=== PATIENT | male | born 1930 | race Caucasian/White ===

== ENCOUNTER 2017-09-12 11:11 | Emergency (ER) | payer MEDICARE ==
[~2017-09-12] VITALS: Ht 172.7 cm; Wt 75.8 kg
[~2017-09-12 11:11] MED LIST: ATOR40TA PO; Aspirin EC81 MG PO; CALCAVITD PO; CARI350 PO; CYCL10 PO; GLIM2 PO; HYDACE5 PO; METF500 PO; MULVITMIND PO; NAPR500 PO; OMEG1CAP30 PO; OMEP20ER PO; ONDA4ODT MM; OXYACE7.5T PO; POLY17UD PO; PRED5 PO; PSYL5.85P PO; Prilosec Otc20 MG PO; ROSU10TA PO; VALS80 PO; XARELTO20 MG PO
[2017-09-12] MEDS ORDERED: TAMS.4ER PO (11:20)
[2017-09-12] MEDS ORDERED: Desowen60 GM TP (11:21)
[2017-09-12] MEDS ORDERED: PROBIOTIC1 EAC1 PO (11:22)
[2017-09-12] MEDS ORDERED: Citrucel500 MG PO (11:22)
[2017-09-12] MEDS ORDERED: AMLO5 PO (11:23)
[2017-09-12] MEDS ORDERED: Metformin HCl1000 MG PO (11:25)
[2017-09-12] MEDS ORDERED: METCAR500 PO (11:51)
== END 2017-09-12 12:06 | disposition home or self-care (01) ==
LOC: ER 11:11
DX: M54.6 Pain in thoracic spine (principal); M54.2 Cervicalgia; I10 Essential (primary) hypertension; E11.9 Type 2 diabetes mellitus without complications; I25.2 Old myocardial infarction; Z86.73 Personal history of transient ischemic attack (TIA), and cerebral infarction without residual deficits; Z87.891 Personal history of nicotine dependence; Z79.82 Long term (current) use of aspirin; Z79.899 Other long term (current) drug therapy; Z79.84 Long term (current) use of oral hypoglycemic drugs
CPT/HCPCS: 93005; 93010; 99283

== ENCOUNTER → 2018-01-29 | Outpatient (CLI) | payer MEDICARE ==
[~2018-01-29] MED LIST changes: +AMLO5 PO; +Citrucel500 MG PO; +Desowen60 GM TP; +METCAR500 PO; +Metformin HCl1000 MG PO; +PROBIOTIC1 EAC1 PO; +TAMS.4ER PO
== END | disposition home or self-care (01) ==
LOC: PLD 07:47 → LAB SHORT 07:47
DX: L57.0 Actinic keratosis (principal)
CPT/HCPCS: 88305

== ENCOUNTER 2018-10-25 09:58 | Day surgery (SDC) | payer MEDICARE ==
[~2018-10-25] VITALS: Ht 172.7 cm; Wt 76.8 kg
[~2018-10-25 09:58] MED LIST changes: +FURO40 PO; +GLIM4 PO; +Glucophage1000 MG PO; +K-Dur20 MEQ PO; +Lo-Dose Aspirin81 MG PO; +Omeprazole20 M1 PO; +VALSARTAN-HCTZ1 EACH PO; +Vsl#3 Capsule1 EACH PO
--- NOTE | 2018-10-25 11:09 | NUR ---
10/25/18 1108 Dagmar [place] 1106- DR NEGRON PRESENTED TO THE KANDACE-OP AREA TO INJECT R WRIST WITH MARCAINE 0.5% WITH EPI 1:200,000 5CC AND LIDOCAINE 2% WITH EPI 1:100,000 5CC. PATIENT WAS GIVEN VERSED 1CC PRIOR TO INJECTION. PT TOLERATED PROCEDURE WELL. OXYGEN SATURATION REMAINED STABLE.
== END 2018-10-25 12:02 | disposition home or self-care (01) ==
LOC: ORSCSDS 09:58
PROVIDERS: Orthopaedic Surgery
PROC: 01N54ZZ Release Median Nerve, Percutaneous Endoscopic Approach (ICD-10-PCS; principal; 2018-10-25 11:30)
DX: G56.01 Carpal tunnel syndrome, right upper limb (principal); I10 Essential (primary) hypertension; E11.9 Type 2 diabetes mellitus without complications; I25.10 Atherosclerotic heart disease of native coronary artery without angina pectoris; Z86.73 Personal history of transient ischemic attack (TIA), and cerebral infarction without residual deficits; Z79.899 Other long term (current) drug therapy; Z79.82 Long term (current) use of aspirin
CPT/HCPCS: 82947; J0690; J2250; J3010; J7120

== ENCOUNTER 2019-01-05 09:43 | Observation (INO) | payer MEDICARE ==
[~2019-01-05] VITALS: Ht 172.7 cm; Wt 77.0 kg
[2019-01-05 10:08] LABS: BASOPHILS ABSOLUTE AUTO 0.02 K/mm3 (0.00-0.23); BASOPHILS PERCENT AUTO 0 % (0-2); EOSINOPHILS ABSOLUTE AUTO 0.12 K/mm3 (0.00-0.68); EOSINOPHILS PERCENT AUTO 1 % (0-6); Hematocrit 32.6 % (37.0-53.0); Hemoglobin 11.2 g/dL (13.5-17.5); IMMATURE GRAN ABSOLUTE AUTO 0.02 K/mm3 (0.00-0.10); IMMATURE GRAN PERCENT AUTO 0 % (0-1); LYMPHOCYTES ABSOLUTE AUTO 0.62 K/mm3 (0.84-5.20); LYMPHOCYTES PERCENT AUTO 7 % (21-46); MONOCYTES ABSOLUTE AUTO 0.16 K/mm3 (0.16-1.47); MONOCYTES PERCENT AUTO 2 % (4-13); Mean Corpuscular HGB 30.4 pg (26.0-34.0); Mean Corpuscular HGB Conc 34.4 g/dL (31.5-36.5); Mean Corpuscular Volume 88 fL (80-100); Mean Platelet Volume 12.2 fL (9.1-12.4); NEUTROPHILS ABSOLUTE AUTO 8.21 K/mm3 (1.96-9.15); NEUTROPHILS PERCENT AUTO 90 % (41-73); Platelet Count 109 K/mm3 (150-400); RDW Standard Deviation 38.9 fL (35.1-46.3); Red Blood Cell Count 3.69 M/mm3 (4.30-5.90); White Blood Cell Count 9.15 K/mm3 (4.00-11.30)
[2019-01-05 10:22] LABS: Alanine Aminotransfer (ALT/SGP 49 U/L (12-78); Albumin, Blood 3.7 g/dL (3.4-5.0); Albumin/Globulin Ratio 1.2 (0.8-1.8); Alk Phos 100 U/L (50-136); Anion Gap 8 mmol/L (6-16); Aspartate Aminotrans (AST/SGOT 43 U/L (12-37); Bilirubin, Total 1.5 mg/dL (0.1-1.0); Blood Urea Nitrogen 33 mg/dL (8-24); Bun/Creatinine Ratio 28.7 (12.0-20.0); CO2, Blood 26 mmol/L (21-32); Calcium, Blood 8.5 mg/dL (8.5-10.1); Chloride, Blood 103 mmol/L (98-108); Creatinine, Blood 1.15 mg/dL (0.60-1.20); Globulin, Blood 3.2 g/dL (2.2-4.0); Glomerular Filtration Rate >60 (60-); Glucose, Blood 242 mg/dL (70-99); Potassium, Blood 4.8 mmol/L (3.5-5.5); Sodium, Blood 137 mmol/L (136-145); Total Protein, Blood 6.9 g/dL (6.4-8.2); Troponin I <0.015 ng/mL (0.000-0.040)
[2019-01-05] MEDS ORDERED: FINA5 PO (12:15)
[2019-01-05] MEDS ORDERED: TRAM50 PO (12:16)
[2019-01-05] MEDS ORDERED: LEVSOD25 PO (12:17)
--- NOTE | 2019-01-05 13:27 | NUR ---
PT ARRIVED FROM ED AND WAS ASSISTED TO THE TOILET WITH STAND BY ASSIST AND THEN TO BED. PT AMBULATES WELL WITH LITTLE TO NO ASSIST. PT WAS ORIENTEDD TO ROOM AND NURSING STAFF AND VERBALIZES AN UNDERSTANDING OF THE USE OF THE CALL LIGHT. PT IS RESTING IN BED.
--- NOTE | 2019-01-05 16:41 | NUR ---
SHIFT SUMMARY: SINCE ADMISSION FROM ER PT HAS REMAINED A/O X 4 AT BASELINE AND IS RESTING CONFORTABLY IN BED. PT STATES THAT THE LEFT SIDE HAS A "NAGGING" PAIN BUT HE IS CONFORTABLE IN BED. TELE WAS ORDERED AND HAS BEEN AT SINUS RHYTHM PER HEAVY MOBILE EQUIPMENT REPAIRER. PT HAS NO OTHER COMPLAINTS AND IS PLEASANT AND COOPERATIVE WITH HIS CARE.
--- NOTE | 2019-01-06 06:02 | NUR ---
SHIFT SUMMARY PT HAS SLEPT WELL DURING THE NIGHT, OFFERS NO C/O'S. B/P THIS AM LOW 70'S/40'S. HOSPITALIST NOTIFIED, ORDERS RECEIVED TO HOLD B/P MEDS THIS AM. B/P RECHECKED AND IS 90'S/40'S. PT ASYMPTOMATIC WITH B/P STATES HE FEELS FINE. WILL CONTINUE TO MONITOR.
--- NOTE | 2019-01-06 18:04 | NUR ---
SHIFT SUMMARY: PT IS A/O X 4 THIS SHIFT WITH NO C/O PAIN. HE WAS TAKEN FOR A STRESS TEST THIS MORNING AND THE SECOND PART WILL BE COMPLETED TOMORROW. CBGS HAVE BEEN HIGHER THAN YESTERDAY AND COVERED WITH SLIDING SCALE ORDERED. PT HAD FAMILY VISIT THIS MORNING. PT NAPPED AND READ MOST OF THE DAY AND IS VERY PLEASANT AND ABLE TO MAKE HIS NEEDS KNOWN.
--- NOTE | 2019-01-07 06:00 | NUR ---
Shift summary. Pt slept most of shift with no c/o discomfort. No request for pain meds. Pt npo p mn for second half of stress test in am. Pt on telemetry sinus rhythm 64 per [employer] teles[employer] professional.
--- NOTE | 2019-01-07 16:41 | NUR ---
SHIFT SUMMARY: PT CONTINUES TO BE A/O X 4 WITH NO C/O PAIN. PT WAS NPO FOR BREAKFAST WHILE AWAITING STRESS TEST AND WAS ASSISTED UP TO THE SHOWER THIS MORNING. SECOND PART OF STRESS TEST WAS COMPLETED THIS AFTERNOON AND THE RESULTS ARE PENDING. PT IS PLEASANT AND COOPERATIVE WITH ALL CARE.
--- NOTE | 2019-01-08 05:58 | NUR ---
SHIFT SUMMARY PT A/O INDEPENDENT IN ROOM. NO C/O PAIN. HE SAYS HE REALLY WANTS TO BE D/C'D TODAY. HE WAS ABLE TO SLEEP T/O NIGHT. CALL LIGHT IN REACH.
[2019-01-08] MEDS ORDERED: GLIM2 PO (09:34)
--- NOTE | 2019-01-08 09:57 | NUR ---
PT DCD HOME WITH AND DAUGHTER. ALL MEDS AND F/U APPTS REVIEWED WITH PT WHO VERBALIZES AN UNDERSTANDING. IV REMOVED WITH NO ISSUE. ALL BELONGINGS SENT WITH PT. PT PLEASANT AND THANKFUL FOR HIS STAY AT [facility].
== END 2019-01-08 09:49 | disposition home or self-care (01) ==
LOC: ER 09:43 → MEDS 09:44 → ENPENDDIS 01-08 09:00 → MEDS 01-08 09:49
PROVIDERS: Emergency Medicine; ADMIT Internal Medicine
DX: R07.9 Chest pain, unspecified (principal); I25.10 Atherosclerotic heart disease of native coronary artery without angina pectoris; E11.51 Type 2 diabetes mellitus with diabetic peripheral angiopathy without gangrene; I73.9 Peripheral vascular disease, unspecified; I10 Essential (primary) hypertension; K21.9 Gastro-esophageal reflux disease without esophagitis; Z86.73 Personal history of transient ischemic attack (TIA), and cerebral infarction without residual deficits; Z95.1 Presence of aortocoronary bypass graft; Z88.8 Allergy status to other drugs, medicaments and biological substances; Z79.01 Long term (current) use of anticoagulants; Z79.82 Long term (current) use of aspirin; Z79.84 Long term (current) use of oral hypoglycemic drugs; Z79.899 Other long term (current) drug therapy
CPT/HCPCS: 36415; 71046; 78452; 80053; 82947; 84484; 85025; 93005; 93010; 93017; 99285-25; A9500; G0378; J0706; J2785

== ENCOUNTER 2019-06-12 09:44 | Day surgery (SDC) | payer MEDICARE ==
[~2019-06-12] VITALS: Ht 172.7 cm; Wt 77.8 kg
[~2019-06-12 09:44] MED LIST changes: +FINA5 PO; +LEVSOD25 PO; +TRAM50 PO
--- NOTE | 2019-06-12 10:45 | NUR ---
06/12/19 Grace Can CALL LIGHT WITHIN REACH.
== END 2019-06-12 11:35 | disposition home or self-care (01) ==
LOC: ORSCSDS 09:44
DX: M18.12 Unilateral primary osteoarthritis of first carpometacarpal joint, left hand (principal); Z53.9 Procedure and treatment not carried out, unspecified reason
CPT/HCPCS: 82947; J0690; J7120

== ENCOUNTER 2019-06-26 08:03 | Day surgery (SDC) | payer MEDICARE ==
[~2019-06-26] VITALS: Ht 172.7 cm; Wt 78.0 kg
--- NOTE | 2019-06-26 08:51 | NUR ---
06/26/19 0851 Grace Umaña CALL LIGHT WITHIN REACH.
== END 2019-06-26 12:27 | disposition home or self-care (01) ==
LOC: ORSCSDS 08:03
DX: M18.12 Unilateral primary osteoarthritis of first carpometacarpal joint, left hand (principal); I10 Essential (primary) hypertension; I25.10 Atherosclerotic heart disease of native coronary artery without angina pectoris; Z87.891 Personal history of nicotine dependence; E11.9 Type 2 diabetes mellitus without complications; E03.9 Hypothyroidism, unspecified; E78.00 Pure hypercholesterolemia, unspecified; Z79.01 Long term (current) use of anticoagulants; Z79.84 Long term (current) use of oral hypoglycemic drugs; Z79.82 Long term (current) use of aspirin; Z79.899 Other long term (current) drug therapy
CPT/HCPCS: 82947; C1713; J0171; J0690; J1100; J1885; J2250; J2405; J2704; J3010; J7120

== ENCOUNTER 2020-04-14 08:21 | Inpatient (IN) | payer MEDICARE ==
[~2020-04-14] VITALS: Ht 172.7 cm; Wt 74.8 kg
[~2020-04-14 08:21] MED LIST changes: -FINA5 PO; -FURO40 PO; -Glucophage1000 MG PO; -K-Dur20 MEQ PO; -LEVSOD25 PO; -Omeprazole20 M1 PO; -VALSARTAN-HCTZ1 EACH PO; -Vsl#3 Capsule1 EACH PO
[2020-04-14 09:07] LABS: BASOPHILS ABSOLUTE AUTO 0.02 K/mm3 (0.00-0.23); BASOPHILS PERCENT AUTO 0 % (0-2); EOSINOPHILS ABSOLUTE AUTO 0.17 K/mm3 (0.00-0.68); EOSINOPHILS PERCENT AUTO 4 % (0-6); Hematocrit 32.2 % (37.0-53.0); Hemoglobin 10.9 g/dL (13.5-17.5); IMMATURE GRAN ABSOLUTE AUTO 0.01 K/mm3 (0.00-0.10); IMMATURE GRAN PERCENT AUTO 0 % (0-1); LYMPHOCYTES ABSOLUTE AUTO 1.45 K/mm3 (0.84-5.20); LYMPHOCYTES PERCENT AUTO 32 % (21-46); MONOCYTES ABSOLUTE AUTO 0.42 K/mm3 (0.16-1.47); MONOCYTES PERCENT AUTO 9 % (4-13); Mean Corpuscular HGB 29.6 pg (26.0-34.0); Mean Corpuscular HGB Conc 33.9 g/dL (31.5-36.5); Mean Corpuscular Volume 88 fL (80-100); Mean Platelet Volume 12.2 fL (9.1-12.4); NEUTROPHILS ABSOLUTE AUTO 2.45 K/mm3 (1.96-9.15); NEUTROPHILS PERCENT AUTO 54 % (41-73); Platelet Count 90 K/mm3 (150-400); RDW Coefficient Variation 11.9 % (11.7-14.2); RDW Standard Deviation 38.1 fL (35.1-46.3); Red Blood Cell Count 3.68 M/mm3 (4.30-5.90); White Blood Cell Count 4.52 K/mm3 (4.00-11.30)
[2020-04-14 09:19] LABS: International Normalized Ratio 1.38; Prothrombin Time Results 14.5 Sec (9.7-11.5)
[2020-04-14 09:31] LABS: Alanine Aminotransfer (ALT/SGP 39 U/L (12-78); Albumin, Blood 3.8 g/dL (3.4-5.0); Albumin/Globulin Ratio 1.2 (0.8-1.8); Alk Phos 101 U/L (50-136); Anion Gap 3 mmol/L (6-16); Aspartate Aminotrans (AST/SGOT 28 U/L (12-37); Bilirubin, Total 1.3 mg/dL (0.1-1.0); Blood Urea Nitrogen 24 mg/dL (8-24); Bun/Creatinine Ratio 21.1 (12.0-20.0); CO2, Blood 28 mmol/L (21-32); Calcium, Blood 8.9 mg/dL (8.5-10.1); Chloride, Blood 107 mmol/L (98-108); Creatinine, Blood 1.14 mg/dL (0.60-1.20); Globulin, Blood 3.1 g/dL (2.2-4.0); Glomerular Filtration Rate >60 (60-); Glucose, Blood 77 mg/dL (70-99); Potassium, Blood 4.6 mmol/L (3.5-5.5); Sodium, Blood 138 mmol/L (136-145); Total Protein, Blood 6.9 g/dL (6.4-8.2)
[2020-04-14] MEDS ORDERED: ATOR40TA PO (12:23)
[2020-04-14] MEDS ORDERED: Omeprazole20 M1 PO (12:23)
[2020-04-14] MEDS ORDERED: VALSARTAN-HCTZ1 EAC9 PO (12:24)
[2020-04-14] MEDS ORDERED: XARELTO20 MG PO (12:24)
[2020-04-14] MEDS ORDERED: METF500 PO (12:24)
[2020-04-14] MEDS ORDERED: AMLO5 PO (12:25)
[2020-04-14] MEDS ORDERED: FURO40 PO (12:25)
[2020-04-14] MEDS ORDERED: FINA5 PO (12:26)
[2020-04-14] MEDS ORDERED: K-Dur20 MEQ PO (12:26)
[2020-04-14] MEDS ORDERED: GLIM2 PO (12:27)
[2020-04-14] MEDS ORDERED: EUTHYROX50 MCG PO (12:27)
[2020-04-14] MEDS ORDERED: METHYLCELLULOSE PO (12:55)
[2020-04-14] MEDS ORDERED: Acidophilus1 EAC1 PO (12:56)
[2020-04-14] MEDS ORDERED: CYAN500 PO (12:57)
--- NOTE | 2020-04-14 18:56 | NUR ---
PT RESTING IN BED WITH FAMILY AT BEDSIDE. pT HAS LEFT SIDED WEAKNESS AND IS A 1 ASSIST. PT MED COMPLIANT, ALERT AHND ORIENTED X4 AND COOPERATIVE. MPT TOLERATED DINNER AND PO MEDS WITHOUT ISSUE. NEURO CHECKS TO CONT. Q4H. STAFF WILL CONT. TO MONITOR.
[2020-04-15 05:26] LABS: BASOPHILS ABSOLUTE AUTO 0.04 K/mm3 (0.00-0.23); BASOPHILS PERCENT AUTO 1 % (0-2); EOSINOPHILS ABSOLUTE AUTO 0.13 K/mm3 (0.00-0.68); EOSINOPHILS PERCENT AUTO 2 % (0-6); Hematocrit 32.3 % (37.0-53.0); IMMATURE GRAN PERCENT AUTO 0 % (0-1); LYMPHOCYTES ABSOLUTE AUTO 1.65 K/mm3 (0.84-5.20); LYMPHOCYTES PERCENT AUTO 27 % (21-46); MONOCYTES ABSOLUTE AUTO 0.58 K/mm3 (0.16-1.47); MONOCYTES PERCENT AUTO 9 % (4-13); Mean Corpuscular HGB 29.8 pg (26.0-34.0); Mean Corpuscular HGB Conc 34.1 g/dL (31.5-36.5); Mean Corpuscular Volume 88 fL (80-100); Mean Platelet Volume 11.9 fL (9.1-12.4); NEUTROPHILS ABSOLUTE AUTO 3.78 K/mm3 (1.96-9.15); NEUTROPHILS PERCENT AUTO 61 % (41-73); Platelet Count 108 K/mm3 (150-400); RDW Coefficient Variation 11.9 % (11.7-14.2); RDW Standard Deviation 38.4 fL (35.1-46.3); Red Blood Cell Count 3.69 M/mm3 (4.30-5.90); White Blood Cell Count 6.18 K/mm3 (4.00-11.30)
--- NOTE | 2020-04-15 05:49 | NUR ---
SHIFT SUMMARY AOX4. VSS. TELE NSR @64. DENIES PAIN, N/V, DYSPNEA. HAS MILD L FACIAL DROOP & REPORTED A "LITTLE NUMBNESS ON L SIDE FACE". L HAND BEN DAY ARTIST ARE WEAKER THEN R HAND, PT STATES HE FEELS L ARM IS STILL "DROOPY & HEAVY". BLE HAVE EQUAL STRENGTH c PEDAL PUSHES/PULLS. LEANS TO L SIDE c AMBULATION. CALL LIGHT IN REACH & ABLE TO MAKE NEEDS KNOWN.
[2020-04-15 05:57] LABS: Alanine Aminotransfer (ALT/SGP 38 U/L (12-78); Albumin, Blood 3.5 g/dL (3.4-5.0); Albumin/Globulin Ratio 1.1 (0.8-1.8); Alk Phos 108 U/L (50-136); Anion Gap 4 mmol/L (6-16); Aspartate Aminotrans (AST/SGOT 35 U/L (12-37); Bilirubin, Total 1.9 mg/dL (0.1-1.0); Blood Urea Nitrogen 22 mg/dL (8-24); Bun/Creatinine Ratio 18.6 (12.0-20.0); CO2, Blood 27 mmol/L (21-32); Calcium, Blood 9.2 mg/dL (8.5-10.1); Chloride, Blood 107 mmol/L (98-108); Creatinine, Blood 1.18 mg/dL (0.60-1.20); Globulin, Blood 3.3 g/dL (2.2-4.0); Glomerular Filtration Rate >60 (60-); Glucose, Blood 101 mg/dL (70-99); Potassium, Blood 4.6 mmol/L (3.5-5.5); Sodium, Blood 138 mmol/L (136-145); Total Protein, Blood 6.8 g/dL (6.4-8.2)
--- NOTE | 2020-04-15 17:03 | NUR ---
SHIFT SUMMARY: NO ACUTE EVENTS TODAY. NO EVENTS ON TELEMETRY. WORKED WITH PHYSICAL THERAPY, OT, AND ST. HAD CARDIAC ECHO THIS EVENING. NO CHANGES IN NEURO ASSESSMENT. GETTING UP TO BR WITH FWW AND SBA, GAIT HAS IMPROVED A BIT. DENIED PAIN. THERAPIES RECOMMENDING SNF FOR REHAB.
--- NOTE | 2020-04-15 17:44 | NUR ---
Echocardiogram using 9.0ml of agitated saline contrast performed.
--- NOTE | 2020-04-16 04:54 | NUR ---
SHIFT SUMMARY: VSS. SBP 160 AT HS, DOWN TO 128 THIS AM. PT AAOX3. ABLE TO COMMUNICATE NEEDS. DENIES PAIN. PERRL. L PILLOWCASE FOLDER WEAKER THAN R, L PUSH/PULL VERY SLIGHTLY WEAKER THAN R. SLIGHT FACIAL DROOP. PT STATES THAT HE FEELS HE IS GETTING STRONGER ON THE L SIDE. DENIES N/T. AMB IN ROOM W/ FWW AND SBA. NO ACUTE CHANGES TONIGHT. WILL CONT TO MONITOR.
--- NOTE | 2020-04-16 19:34 | NUR ---
SHIFT SUMMARY- PT IS A/O, PLESANT AND COOPERATIVE. HE IS EATING AND DRINKING WELL. HE WORKED WITH PT AND TOLERATED WELL. HE HAS SOME LEFT SIDED WEAKNESS. CALL LIGHT WITHIN REACH
--- NOTE | 2020-04-17 05:10 | NUR ---
SHIFT SUMMARY: VSS. AFEB. AAOX3. CONT W/ L CORN POPPER WEAKNESS AND SLIGHT TILT TO THE LEFT WHEN AMBULATING USING WALKER AND 1 ASSIST. SMILE APPEARS EQUAL BUT L SIDE OF PT MOUTH DROOPS WHILE PT IS SPEAKING. PT STATES THAT HE NOTICES HIS SPEECH BECOMES MORE SLURRED AFTER TALKING FOR LONGER PERIODS OF TIME. HE ALSO STATES THAT HE NOTICES HE IS DROOLING OCCASIONALLY FROM THE LEFT SIDE OF HIS MOUTH. NO COUGHING W/ORAL INTAKE. SLEEPING WELL TONIGHT. DENIES PAIN. PLEASANT AND COMMUNICATES NEEDS W/OUT DIFFICULTY.
--- NOTE | 2020-04-17 06:37 | NUR ---
RECEIVED CALL FROM TELE DRESS CAP MAKER STATING PT HAD 6 BEAT RUN OF V-TACH. REMAINED ASLEEP DURING.
--- NOTE | 2020-04-17 17:45 | NUR ---
OK TO LEAVE TELE ON WITH NO IV PER DR. PAIGE
--- NOTE | 2020-04-17 18:15 | NUR ---
SHIFT SUMMARY- PT IS A/O, PLESANT AND COOPERATIVE. HE IS EATING AND DRINKING WELL. HE TOOK A SHOWER THIS MORNING. HE IS STILL SHOWING LEFT SIDED WEAKNESS. HIS IV HAD TO BE REMOVED AFTER HIS SHOWER DUE TO BLOOD LEAKING AROUND IT. A NEW IV WAS ATTEMPTED AND UNSUCCESSFUL. DISCUSSED THIS WITH DR. PAIGE. OK TO LEAVE IT OUT. HE WAS UP TO THE CHAIR FOR SEVERAL HOURS THIS AFTERNOON.
--- NOTE | 2020-04-17 19:20 | NUR ---
ASSUMED CARE RECEIVED REPORT FROM CLAUDIA LARES. ASSUMED CARE OF PT. PT APPEARS COMFORTABLE, RESPS E/U, NO S/S ACUTE DISTRESS NOTED. PT DENIES NEEDS AT THIS TIME. CALL LIGHT AND POSSESSIONS IN REACH, SABAS.
--- NOTE | 2020-04-18 04:28 | NUR ---
SHIFT SUMMARY PT ASLEEP, NO S/S ACUTE DISTRESS NOTED. WAS MONITORED EVERY 1-2 HOURS WITH NEEDS MET. VS REVIEWED, WNL. PT ABLE TO STAND WITH 1 ASSIST WITH FWW AND GAIT BELT TO VOID IN URINAL, TOLERATED WELL. LT SIDE WEAKNESS REMAINS PRESENT. NO ATTEMPTS TO EXIT BED, PT CALLS APPROPRIATELY TO MAKE NEEDS KNOWN. PT DENIES NEEDS AT THIS TIME. CALL LIGHT, POSSESSIONS IN REACH, BED IN LOW POSITION. WCTM, REPORT TO ONCOMING RN.
[2020-04-18 05:16] LABS: BASOPHILS ABSOLUTE AUTO 0.03 K/mm3 (0.00-0.23); BASOPHILS PERCENT AUTO 1 % (0-2); EOSINOPHILS ABSOLUTE AUTO 0.18 K/mm3 (0.00-0.68); EOSINOPHILS PERCENT AUTO 3 % (0-6); Hematocrit 30.8 % (37.0-53.0); Hemoglobin 10.8 g/dL (13.5-17.5); IMMATURE GRAN ABSOLUTE AUTO 0.01 K/mm3 (0.00-0.10); IMMATURE GRAN PERCENT AUTO 0 % (0-1); LYMPHOCYTES ABSOLUTE AUTO 1.69 K/mm3 (0.84-5.20); LYMPHOCYTES PERCENT AUTO 30 % (21-46); MONOCYTES ABSOLUTE AUTO 0.53 K/mm3 (0.16-1.47); MONOCYTES PERCENT AUTO 10 % (4-13); Mean Corpuscular HGB 30.6 pg (26.0-34.0); Mean Corpuscular HGB Conc 35.1 g/dL (31.5-36.5); Mean Corpuscular Volume 87 fL (80-100); Mean Platelet Volume 11.8 fL (9.1-12.4); NEUTROPHILS ABSOLUTE AUTO 3.12 K/mm3 (1.96-9.15); NEUTROPHILS PERCENT AUTO 56 % (41-73); Platelet Count 105 K/mm3 (150-400); RDW Coefficient Variation 11.8 % (11.7-14.2); RDW Standard Deviation 37.6 fL (35.1-46.3); Red Blood Cell Count 3.53 M/mm3 (4.30-5.90); White Blood Cell Count 5.56 K/mm3 (4.00-11.30)
[2020-04-18 05:41] LABS: Bun/Creatinine Ratio 25.4 (12.0-20.0); Calcium, Blood 8.8 mg/dL (8.5-10.1); Creatinine, Blood 1.38 mg/dL (0.60-1.20); Potassium, Blood 4.5 mmol/L (3.5-5.5)
--- NOTE | 2020-04-18 18:06 | NUR ---
SHIFT SUMMARY PATIENT IS PLEASANT, ALERT AND ORIENTED. CALLS APPROPRIATELY. REPORTS THAT HE IS READY TO GO TO REHAB SO THAT HE CAN GET STRONGER BEFORE HE GOES HOME. HE STATES THAT HE IS DOING WELL AND DENIES ANY PAIN, SHORTNESS OF BREATH OR CHEST PAIN. HE WORKED WITH PHYSICAL THERAPY TODAY AND WALKED IN THE HALLWAYS. HE KNOWS THAT HE IS HERE UNTIL MONDAY DUE TO "NO ADMINISTRATION AT THE FACILITY UNTIL MONDAY". HE HAS NO CONCERNS ABOUT HIS DIET AT THIS TIME AND STATES HE UNDERSTANDS THE CONCERN AND WOULD LIKE TO CONTINUE TO BE EVALUATED NEEDED.
--- NOTE | 2020-04-18 19:00 | NUR ---
ASSUMED CARE RECEIVED REPORT FROM CLAUDIA REIS. ASSUMED CARE OF PT. PT A&O, PLEASANT, CALLS APPROPRIATELY FOR NEEDS. NO S/S ACUTE DISTRESS NOTED. DENIES NEEDS AT THIS TIME. CALL LIGHT, POSSESSIONS IN REACH, BED IN LOW POSITION WCTM.
--- NOTE | 2020-04-18 22:00 | NUR ---
REPORT GIVEN TO CLAUDIA ROSS. PT TRANSFERRED TO RM 335. ALL BELONGINGS AND MEDICATIONS SENT WITH PT.
--- NOTE | 2020-04-19 05:56 | NUR ---
WELDING MACHINE SETTER SUMMARY PT TRANSFERRED FROM ROOM 351 TO 335. RECEIVED REPORT FROM CLAUDIA OLMEDO. PT A&OX4, ABLE TO MAKE NEEDS KNOWN, PLEASANT AND COOPERATIVE TO CARE. DENIES CP, RESP EVEN AND UNLABORED IN ROOM AIR. DENIES N&V. PT CALM AND RESTED IN BED T/O SHIFT. PT CALLS APPROPRIATELY FOR ASSISTANCE. 1P SBA W/ FWW TO BATHROOM. BED AT LOWEST POSITION, CALL LIGHT WITHIN REACH. WILL CONT TO MONITOR PT FOR ANY CHANGES.
[2020-04-19 11:48] LABS: Anion Gap 5 mmol/L (6-16); Blood Urea Nitrogen 31 mg/dL (8-24); Bun/Creatinine Ratio 25.8 (12.0-20.0); CO2, Blood 28 mmol/L (21-32); Chloride, Blood 103 mmol/L (98-108); Glomerular Filtration Rate >60 (60-); Glucose, Blood 194 mg/dL (70-99); Potassium, Blood 4.5 mmol/L (3.5-5.5); Sodium, Blood 136 mmol/L (136-145)
--- NOTE | 2020-04-19 17:56 | NUR ---
PT AOX4 AND COOPERATIVE OF CARE. PT DENIED ANY PAIN AND CALLS APPROPRIATELY. PT IS A ONE PERSON WITH WALKER. PT AMBULATING WELL AT THIS TIME. WILL CONTINUE HANNAH MONITOR.
--- NOTE | 2020-04-20 04:07 | NUR ---
ESCAPEMENT MAKER SUMMARY A/OX3, APPEARED TO SLEEP T/O SHIFT. 1 ASSIST WITH FWW TO BATHROOM D/T SOME L. SIDED WEAKNESS. DENIES PAIN OR SOB. NO ACUTE CHANGES AT THIS TIME. BED IN LOWEST POSITION WITH CALL LIGHT IN REACH. WILL CONTINUE TO MONITOR AND REPORT TO ONCOMING RN.
[2020-04-20] MEDS ORDERED: CLOP75 PO (14:17)
[2020-04-20] MEDS ORDERED: XARELTO20 MG PO (14:17)
[2020-04-20] MEDS ORDERED: ACET325 PO (14:17)
--- NOTE | 2020-04-20 15:24 | NUR ---
PT DISCHARGED AT 1440 AOX4 AND COOPERATIVE OF CARE. PT AMBULATING WELL A STANDBY ASSIST. CALLED APPROPRIATELY AND WAS CONTINENT OF BOTH BOWEL AND BLADDER. PT VERY GOOD ABOUT KNOWING TO ONLY DRINK WITHOUT A STRAW AND TO HAVE MECHANICAL SOFT FOODS. PT HAD ALL PAPERWORK REVIEWED AND EDUCATIONAL MATERIAL SENT WITH HIM. DAUGHTER ARRIVED TO TRANSPORT PT HOME. DAUGHTER INSISTED ON TAKING PT OUT IN WHEELCHAIR DECLINING ESCORT. ALL PERSONAL BELONGING COLLECTED AND TAKEN WITH PT.
== END 2020-04-20 14:53 | disposition home or self-care (01) | DRG 65 ==
LOC: ER 08:21 → ERHOLD 08:22 → MEDS 16:38 → ENPENDDIS 04-20 12:46 → MEDS 04-20 14:53
PROVIDERS: Emergency Medicine; Student in an Organized Health Care Education/Training Program; ADMIT Family Medicine
DX: I63.89 Other cerebral infarction (principal); G81.94 Hemiplegia, unspecified affecting left nondominant side; N17.9 Acute kidney failure, unspecified; I25.3 Aneurysm of heart; R29.810 Facial weakness; I10 Essential (primary) hypertension; E11.9 Type 2 diabetes mellitus without complications; I25.10 Atherosclerotic heart disease of native coronary artery without angina pectoris; E03.9 Hypothyroidism, unspecified; K21.9 Gastro-esophageal reflux disease without esophagitis; E78.5 Hyperlipidemia, unspecified; N40.0 Benign prostatic hyperplasia without lower urinary tract symptoms; E86.9 Volume depletion, unspecified; Z95.1 Presence of aortocoronary bypass graft; I25.2 Old myocardial infarction; Z87.891 Personal history of nicotine dependence; Z79.84 Long term (current) use of oral hypoglycemic drugs; Z79.82 Long term (current) use of aspirin
CPT/HCPCS: 36415; 70450; 70496; 70498; 70551; 80048; 80053; 82947; 85025; 85610; 92526; 92610; 93005; 93010; 93306; 97110; 97112; 97116; 97162; 97166; 97530; 99285-25; A9270; A9270-GY; G0378; Q9967

== ENCOUNTER → 2020-04-24 | Outpatient (CLI) | payer MEDICARE ==
[~2020-04-24] MED LIST changes: +ACET325 PO; +Acidophilus1 EAC1 PO; +CLOP75 PO; +CYAN500 PO; +EUTHYROX50 MCG PO; +FINA5 PO; +FURO40 PO; +K-Dur20 MEQ PO; +METHYLCELLULOSE PO; +Omeprazole20 M1 PO; +VALSARTAN-HCTZ1 EAC9 PO
== END | disposition home or self-care (01) ==
LOC: LAB EV 13:22
DX: E03.9 Hypothyroidism, unspecified (principal)
CPT/HCPCS: 84443

== ENCOUNTER → 2021-11-28 | Outpatient (CLI) | payer MEDICARE | END | disposition home or self-care (01) | LOC: LAB 13:37 → LAB SHORT 13:37 | DX: T14.8XXA Other injury of unspecified body region, initial encounter (principal) | CPT/HCPCS: 87070; 87075; 87205 ==

== ENCOUNTER 2022-03-22 13:43 | Observation (INO) | payer MEDICARE ==
[~2022-03-22] VITALS: Ht 172.7 cm; Wt 73.1 kg
[2022-03-22 14:10] LABS: BASOPHILS ABSOLUTE AUTO 0.02 K/mm3 (0.00-0.23); BASOPHILS PERCENT AUTO 0 % (0-2); EOSINOPHILS ABSOLUTE AUTO 0.06 K/mm3 (0.00-0.68); EOSINOPHILS PERCENT AUTO 1 % (0-6); Hematocrit 31.9 % (37.0-53.0); Hemoglobin 11.5 g/dL (13.5-17.5); IMMATURE GRAN ABSOLUTE AUTO 0.01 K/mm3 (0.00-0.10); IMMATURE GRAN PERCENT AUTO 0 % (0-1); LYMPHOCYTES ABSOLUTE AUTO 0.96 K/mm3 (0.84-5.20); LYMPHOCYTES PERCENT AUTO 16 % (21-46); MONOCYTES PERCENT AUTO 7 % (4-13); Mean Corpuscular HGB Conc 36.1 g/dL (31.5-36.5); Mean Corpuscular Volume 86 fL (80-100); Mean Platelet Volume 10.8 fL (9.1-12.4); NEUTROPHILS ABSOLUTE AUTO 4.48 K/mm3 (1.96-9.15); NEUTROPHILS PERCENT AUTO 76 % (41-73); Platelet Count 102 K/mm3 (150-400); RDW Coefficient Variation 12.3 % (11.7-14.2); RDW Standard Deviation 38.7 fL (35.1-46.3); Red Blood Cell Count 3.71 M/mm3 (4.30-5.90); White Blood Cell Count 5.93 K/mm3 (4.00-11.30)
[2022-03-22 14:20] LABS: Albumin, Blood 3.9 g/dL (3.4-5.0); Albumin/Globulin Ratio 1.1 (0.8-1.8); Bilirubin, Total 1.8 mg/dL (0.1-1.0); Bun/Creatinine Ratio 22.2 (12.0-20.0); Calcium, Blood 9.2 mg/dL (8.5-10.1); Creatinine, Blood 1.08 mg/dL (0.60-1.20); Globulin, Blood 3.4 g/dL (2.2-4.0); Potassium, Blood 4.5 mmol/L (3.5-5.5); Total Protein, Blood 7.3 g/dL (6.4-8.2)
[2022-03-22 15:23] LABS: Source, Urine Clean Catch
[2022-03-22 15:35] LABS: Appearance, Urine Clear (Clear); Bilirubin, Urine Neg (Neg); Blood, Urine 1+ (Neg); Color, Urine Yellow (P-Yellow); Glucose Qualitative, Urine Neg (Neg); Ketones, Urine Neg (Neg); Leukocyte Esterase, Urine Neg (Neg); Nitrite, Urine Neg (Neg); Protein, Urine 3+ (Neg); Urobilinogen, Urine NORM (Normal)
[2022-03-22 15:51] LABS: Bacteria Rare /hpf; Red Blood Cells, Urine 0-2 /hpf (0-2); Squamous Epithelial Cells Not Seen /hpf (Few); White Blood Cells, Urine 0-2 /hpf (0-5)
--- NOTE | 2022-03-22 19:01 | NUR ---
ASSUMED CARE OF PT UPON HIS ARRIVAL FROM ED AT 1753. TRANSFERRED FROM [facility] TO [facility] WITH 1 PERSON ASSIST. L HAND AND LLE WEAKNESS NOTED. FLU VACCINE GIVEN. ADND DAUGHTER AT [facility].
--- NOTE | 2022-03-23 03:57 | NUR ---
PT A/O X 4. PT PLEASANT AND COOPERATIVE TO CARE. PT IS [place] AND WEARS HEARING AIDES. PT HAS A NEW ORDER FOR ANTIEMBOLISM STOCKINGS WHICH ARE AT BEDSIDE. PT HAS STABLE VS. PT IS CURRENTLY RESTING WITH BED IN LOWEST POSITION AND CALL LIGHT WITHIN REACH.
[2022-03-23 05:26] LABS: BASOPHILS ABSOLUTE AUTO 0.02 K/mm3 (0.00-0.23); BASOPHILS PERCENT AUTO 0 % (0-2); EOSINOPHILS ABSOLUTE AUTO 0.12 K/mm3 (0.00-0.68); EOSINOPHILS PERCENT AUTO 2 % (0-6); Hematocrit 28.8 % (37.0-53.0); Hemoglobin 10.6 g/dL (13.5-17.5); IMMATURE GRAN ABSOLUTE AUTO 0.01 K/mm3 (0.00-0.10); IMMATURE GRAN PERCENT AUTO 0 % (0-1); LYMPHOCYTES ABSOLUTE AUTO 1.02 K/mm3 (0.84-5.20); LYMPHOCYTES PERCENT AUTO 21 % (21-46); MONOCYTES ABSOLUTE AUTO 0.48 K/mm3 (0.16-1.47); MONOCYTES PERCENT AUTO 10 % (4-13); Mean Corpuscular HGB 31.3 pg (26.0-34.0); Mean Corpuscular HGB Conc 36.8 g/dL (31.5-36.5); Mean Corpuscular Volume 85 fL (80-100); Mean Platelet Volume 11.2 fL (9.1-12.4); NEUTROPHILS PERCENT AUTO 67 % (41-73); Platelet Count 95 K/mm3 (150-400); RDW Coefficient Variation 12.3 % (11.7-14.2); RDW Standard Deviation 37.3 fL (35.1-46.3); Red Blood Cell Count 3.39 M/mm3 (4.30-5.90); White Blood Cell Count 4.95 K/mm3 (4.00-11.30)
[2022-03-23 06:02] LABS: Albumin, Blood 3.3 g/dL (3.4-5.0); Anion Gap 6 mmol/L (6-16); Blood Urea Nitrogen 18 mg/dL (8-24); Bun/Creatinine Ratio 15.9 (12.0-20.0); CHOL/HDL RATIO 2.3; CO2, Blood 27 mmol/L (21-32); Calcium, Blood 8.8 mg/dL (8.5-10.1); Chloride, Blood 103 mmol/L (98-108); Cholesterol 88 mg/dL (50-200); Creatinine, Blood 1.13 mg/dL (0.60-1.20); Glomerular Filtration Rate 62 (60-); Glucose, Blood 77 mg/dL (70-99); HDL Cholesterol 39 mg/dL (>39); LDL/HDL RATIO 0.6; Low Density Lipoprotein Chol 25 mg/dL (0-110); Phosphorus, Blood 3.4 mg/dL (2.5-4.9); Potassium, Blood 4.1 mmol/L (3.5-5.5); Sodium, Blood 136 mmol/L (136-145); Triglycerides 121 mg/dL (30-160); Very Low Density Lipoprot Chol 24 mg/dL (6-32)
--- NOTE | 2022-03-23 09:45 | NUR ---
AT 0915, PT STATED HE FELL WHILE IN THE BR. NO APPARENT INJURY NOTED. HOWEVER, WHILE GETTING PT BTB, INCREASE IN FACIAL DROOP AND L SIDE WEAKNESS NOTED ALONG WITH DYSARTHRIA. DR. GHOTRA NOTIFIED BY PHONE, CAME TO BEDSIDE TO ASSESS PT. BP 152/76, HR 78, O2 SAT 98 RA. C/O DEJESUS ON RIGHT FRONTAL AREA. STAT HEAD CT ORDERED. CARDIAC ECHO COMPLETED JUST PRIOR TO CT SCAN. WILL CONTINUE TO MONITOR.
--- NOTE | 2022-03-23 15:58 | NUR ---
LUE WEAKNESS AND L FACIAL DROOP HAVE IMPROVED SLIGHTLY. IS GETTING UP WITH 1 PERSON AND FWW, BUT IS IMPULSIVE AT TIMES. BED AND CHAIR ALARMS IN USE.
--- NOTE | 2022-03-23 19:18 | NUR ---
SHIFT SUMMARY: NEURO EXAM STABLE, NO NEW DEFICITS SINCE TIA THIS MORNING. HEADACHE ALMOST COMPLETELY RESOLVED WITH ONE TIME DOSE OF OXYCODONE. GETTING UP TO BR WITH FWW, GAIT BELT, AND CONSTANT SUPERVISION. APPETITE GOOD. HAD TWO BM'S TODAY. WORKED WITH PT/OT TODAY. IS HOPING TO GO HOME TOMORROW.
--- NOTE | 2022-03-24 06:13 | NUR ---
ACTIVITY THERAPY TEACHER SUMMARY: A&Ox4. PLEASANT AND COOPERATIVE WITH CARE. NOTED TO BE RUNNING LOW-GRADE FEVER LAST NIGHT AND GIVEN PRN APAP. RECHECK THIS MORNING WNL. NO C/O PAIN OR DISCOMFORT. NEURO CONTINUE TO YEILD SLIGHT LEFT-SIDED DEFICIT. NO OTHER CONCERNS T/O THE NIGHT. WILL REPORT TO ONCOMING RN.
[2022-03-24 07:49] LABS: BASOPHILS ABSOLUTE AUTO 0.02 K/mm3 (0.00-0.23); BASOPHILS PERCENT AUTO 0 % (0-2); EOSINOPHILS ABSOLUTE AUTO 0.09 K/mm3 (0.00-0.68); EOSINOPHILS PERCENT AUTO 2 % (0-6); Hematocrit 28.8 % (37.0-53.0); Hemoglobin 10.5 g/dL (13.5-17.5); IMMATURE GRAN ABSOLUTE AUTO 0.01 K/mm3 (0.00-0.10); IMMATURE GRAN PERCENT AUTO 0 % (0-1); LYMPHOCYTES ABSOLUTE AUTO 0.89 K/mm3 (0.84-5.20); LYMPHOCYTES PERCENT AUTO 20 % (21-46); MONOCYTES ABSOLUTE AUTO 0.48 K/mm3 (0.16-1.47); MONOCYTES PERCENT AUTO 11 % (4-13); Mean Corpuscular HGB Conc 36.5 g/dL (31.5-36.5); Mean Corpuscular Volume 85 fL (80-100); Mean Platelet Volume 11.1 fL (9.1-12.4); NEUTROPHILS ABSOLUTE AUTO 2.99 K/mm3 (1.96-9.15); NEUTROPHILS PERCENT AUTO 67 % (41-73); Platelet Count 90 K/mm3 (150-400); RDW Coefficient Variation 12.2 % (11.7-14.2); RDW Standard Deviation 37.9 fL (35.1-46.3); Red Blood Cell Count 3.39 M/mm3 (4.30-5.90); White Blood Cell Count 4.48 K/mm3 (4.00-11.30)
[2022-03-24 08:04] LABS: Albumin, Blood 3.3 g/dL (3.4-5.0); Anion Gap 5 mmol/L (6-16); Blood Urea Nitrogen 24 mg/dL (8-24); Bun/Creatinine Ratio 19.2 (12.0-20.0); CO2, Blood 28 mmol/L (21-32); Calcium, Blood 8.6 mg/dL (8.5-10.1); Chloride, Blood 102 mmol/L (98-108); Creatinine, Blood 1.25 mg/dL (0.60-1.20); Glomerular Filtration Rate 55 (60-); Glucose, Blood 93 mg/dL (70-99); Potassium, Blood 4.1 mmol/L (3.5-5.5); Sodium, Blood 135 mmol/L (136-145)
[2022-03-24] MEDS ORDERED: PANT40 PO (11:14)
[2022-03-24] MEDS ORDERED: CLOP75 PO (11:15)
[2022-03-24] MEDS ORDERED: AZIT250 PO (11:15)
--- NOTE | 2022-03-24 15:20 | NUR ---
SHIFT SUMMARY PLEASANT 89-YEAR-OLD PTN STAY EXTENDED UNTIL TODAY POST REPORTED FALL YESTERDAY. PTN SEEN BY PT TODAY, SEEN WALKING DOWN THE CHOW WITH FWW. PTN WITH L-SIDED WEAKNESS, STANDBY ASSIST. PTN DC'D AT 1320, TAKEN BY TO VEHICLE WITH FAMILY TRANSPORT TO HOME.
== END 2022-03-24 13:18 | disposition home or self-care (01) ==
LOC: ER 13:43 → ERHOLD 13:44 → MEDS 17:46
PROVIDERS: Emergency Medicine; ADMIT Family Medicine
DX: I63.9 Cerebral infarction, unspecified (principal); G81.94 Hemiplegia, unspecified affecting left nondominant side; I10 Essential (primary) hypertension; Z95.1 Presence of aortocoronary bypass graft; Z87.891 Personal history of nicotine dependence; I25.10 Atherosclerotic heart disease of native coronary artery without angina pectoris; I25.2 Old myocardial infarction; Z79.01 Long term (current) use of anticoagulants; E11.9 Type 2 diabetes mellitus without complications; E03.9 Hypothyroidism, unspecified; Z79.84 Long term (current) use of oral hypoglycemic drugs
CPT/HCPCS: 36415; 70450; 70496; 70498; 80053; 80061; 80069; 81001; 82947; 84443; 85025; 90686; 93005; 93010; 93306; 93880; 97110; 97116; 97162; 97165; 97530; 97535; A9270; G0378; Q9967